=== PATIENT | female | born 1985 | race Caucasian/White ===

== ENCOUNTER 2023-10-23 07:20 | Day surgery (SDC) | payer BC ==
[~2023-10-23] VITALS: Ht 167.6 cm; Wt 101.2 kg
[~2023-10-23 07:20] MED LIST: AMIT50TA PO; PROP10TA56 PO; ZOLO100T PO
[2023-10-23] MEDS: NS 1,000 ML IV ONE (07:39)
[2023-10-23] MEDS ORDERED: propofoL 200 MG/20 ML VIAL As Ordered ONE (08:03)
[2023-10-23] MEDS ORDERED: LIDOCAINE 2% 100MG/5ML SDV (FOR ANES.) As Ordered ONE (08:03)
[2023-10-23] MEDS ORDERED: fentaNYL 100 MCG/2 ML INJECTION As Ordered ONE (08:03)
[2023-10-23 08:39] VITALS: TEMP 98.8
[2023-10-23 08:53] VITALS: BP 140/68; O2SAT 100
== END 2023-10-23 09:03 | disposition home or self-care (01) ==
LOC: M OPP 07:20
PROVIDERS: ATTEND Internal Medicine Gastroenterology
DX: K64.8 Other hemorrhoids (principal); K64.4 Residual hemorrhoidal skin tags; K63.89 Other specified diseases of intestine; R19.4 Change in bowel habit; K29.70 Gastritis, unspecified, without bleeding; R12 Heartburn; G47.30 Sleep apnea, unspecified; Z99.89 Dependence on other enabling machines and devices; Z79.899 Other long term (current) drug therapy
CPT/HCPCS: 43239; 45380; 88305; J3010